=== PATIENT | female | born 1945 | race Caucasian/White ===

== ENCOUNTER 2019-09-09 07:15 | Day surgery (SDC) | payer OTHER ==
[~2019-09-09 07:15] MED LIST: ESKALITH300 MG
[2019-09-09] MEDS ORDERED: MACROBID 100 M100 MG PO (13:15)
[2019-09-09] MEDS ORDERED: ULTRACET PO (13:16)
== END 2019-09-09 17:25 | disposition home or self-care (01) ==
LOC: CIR.AMB 07:15
DX: N81.5 Vaginal enterocele (principal); N81.6 Rectocele